=== PATIENT | female | born 1950 | race Caucasian/White ===

== ENCOUNTER 2016-12-06 09:14 | Inpatient (IN) | payer OTHER ==
[~2016-12-06] VITALS: Ht 172.7 cm; Wt 87.0 kg
[2016-12-06] MEDS ORDERED: SODIUM CHLORIDE 0.9% 1,000 ML IVB ONE (09:41)
[2016-12-06 09:45] LABS: Basophils # (auto) 0 uL; Basophils % (auto) 0.4 % (0.0-2.0); CONDITION Y; Eosinophils # (auto) 0.1 uL; Eosinophils % (auto) 0.9 % (0.0-7.0); Hematocrit 37.3 % (36.0-46.0); Hemoglobin 12.6 g/dL (12.2-16.2); Lymphocytes # (auto) 1.4 uL; Lymphocytes % (auto) 20.2 % (10.0-50.0); Mean Corpuscular Hemoglobin 32.3 pg (28.0-32.0); Mean Corpuscular Hgb Conc. 33.9 g/dL (32.0-36.0); Mean Corpuscular Volume 95.3 fL (80.0-100.0); Mean Platelet Volume 8.7 fL (7.4-10.4); Monocytes # (auto) 0.4 uL; Monocytes % (auto) 5.6 % (0.0-12.0); Neutrophils # (auto) 5.2 uL; Neutrophils % (auto) 72.9 % (37.0-80.0); Platelet Count (auto) 275 10^3/uL (140-450); White Blood Cell 7.2 10^3/uL (4.4-10.8)
[2016-12-06] MEDS ORDERED: ASPirin 81 mg TAB PO ONE (09:45)
[2016-12-06 10:10] LABS: Albumin 3.7 g/dL (3.4-5.0); Alkaline Phosphatase 73 U/L (45-117); Anion Gap 6 (5-15); Aspartate Aminotransferase 13 U/L (15-37); BUN/Creatinine Ratio 20.2; Bilirubin, Total 0.3 mg/dL (0.2-1.0); Blood Urea Nitrogen 22 mg/dL (7-18); Calcium 9.3 mg/dL (8.5-10.1); Carbon Dioxide 26 mmol/L (21-32); Chloride 108 mmol/L (98-107); GFR African American 65 mL/min; GFR Non-African American 54 mL/min; Glucose 123 mg/dL (74-106); Potassium 4.4 mmol/L (3.5-5.1); Sodium 140 mmol/L (136-145); Total Protein 7.1 g/dL (6.4-8.2)
[2016-12-06] MEDS ORDERED: LORazepam 0.5 MG TAB PO PRN (10:30)
[2016-12-06] MEDS ORDERED: LACTULOSE 20Gm/30ML SOLN PO PRN (10:30)
[2016-12-06] MEDS ORDERED: DEXTROSE (50%) 50ML SYRG IV PRN (10:30)
[2016-12-06] MEDS ORDERED: NITROGLYCERIN 0.4 MG SL TAB SL PRN (10:30)
[2016-12-06] MEDS ORDERED: MORPHINE SULF INJ 2 MG/ML SYRINGE 1ML IV PRN ×2 (10:30)
[2016-12-06] MEDS ORDERED: PROMETHAZINE HCL 25 MG/ML 1ML IV PRN (10:30)
[2016-12-06] MEDS ORDERED: MORPHINE SULFATE 4 MG/ML SYRG IV PRN (10:30)
[2016-12-06] MEDS ORDERED: ENOXAPARIN SOD 40 MG/0.4 ML SYRINGE SC ONE (10:45)
[2016-12-06] MEDS ORDERED: METOPROLOL TARTRATE 25 MG TAB PO ONE (10:45)
[2016-12-06 10:50] LABS: INR 0.91 (0.9-1.15); Partial Thromboplastin Time 25.2 sec (22.64-33.71); Prothrombin Time 9.9 sec (9.37-12.3)
[2016-12-06] MEDS: SODIUM CHLORIDE 0.9% 1,000 ML IV SCH ×2 (11:04→23:43)
[2016-12-06 11:14] LABS: Temperature: 23.7 C (20.0-25.0)
[2016-12-06] MEDS: ACCU-CHEK COMFORT CURVE STRIP VI SCH ×3 (12:06→23:43)
[2016-12-06] MEDS ORDERED: LORazepam 2MG/ML-1ML VIAL IV PRN (17:30)
[2016-12-06] MEDS ORDERED: CYANOCOBALAMIN (B-12) 1000 MCG/1 ML VIAL IM ONE (19:00)
[2016-12-06] MEDS: TEMAZEPAM 15 MG CAP PO PRN (21:19)
[2016-12-06] MEDS: METOPROLOL TARTRATE 25 MG TAB PO SCH (21:19)
[2016-12-06] MEDS: ATORVASTATIN 20 MG TAB PO SCH (21:19)
[2016-12-06 21:57] VITALS: BP 112/60
[2016-12-06] MEDS ORDERED: PANT40TA2 PO (22:55)
[2016-12-06] MEDS ORDERED: INDO50CA82 PO (22:56)
[2016-12-07 05:27] VITALS: BP 110/64
[2016-12-07] MEDS: ACCU-CHEK COMFORT CURVE STRIP VI SCH ×2 (06:11→12:00)
[2016-12-07 06:16] LABS: Albumin 3.2 g/dL (3.4-5.0); BUN/Creatinine Ratio 20.7; Bilirubin, Total 0.5 mg/dL (0.2-1.0); Calcium 8.9 mg/dL (8.5-10.1); Potassium 4.5 mmol/L (3.5-5.1); Total Protein 6.4 g/dL (6.4-8.2)
[2016-12-07 07:30] VITALS: BP 121/67
[2016-12-07] MEDS: ASPirin 81 mg TAB PO SCH (10:00)
[2016-12-07] MEDS ORDERED: NITROGLYCERIN 0.2MG/HR TOPICAL PATCH TD SCH (10:00)
[2016-12-07] MEDS: ENOXAPARIN SOD 40 MG/0.4 ML SYRINGE SC SCH (10:00)
[2016-12-07] MEDS ORDERED: IBUPROFEN 400 MG TAB PO PRN (10:45)
[2016-12-07] MEDS ORDERED: IBUPROFEN 400 MG TAB PO ONE (10:45)
[2016-12-07] MEDS: METOPROLOL TARTRATE 25 MG TAB PO SCH (10:46)
[2016-12-07] MEDS: CYANOCOBALAMIN 500 MCG TAB PO SCH (10:46)
[2016-12-07] MEDS: SODIUM CHLORIDE 0.9% 1,000 ML IV SCH (16:01)
[2016-12-07 17:00] VITALS: BP 124/68
[2016-12-07 22:00] VITALS: BP 115/76
[2016-12-07] MEDS: TEMAZEPAM 15 MG CAP PO PRN (22:04)
[2016-12-07] MEDS: ATORVASTATIN 20 MG TAB PO SCH (22:04)
[2016-12-08 05:00] VITALS: BP 111/61
[2016-12-08 07:30] VITALS: BP 118/74
[2016-12-08 09:00] VITALS: BP 118/74
[2016-12-08] MEDS: ASPirin 81 mg TAB PO SCH (09:43)
[2016-12-08] MEDS: CYANOCOBALAMIN 500 MCG TAB PO SCH (09:43)
[2016-12-08] MEDS: ENOXAPARIN SOD 40 MG/0.4 ML SYRINGE SC SCH (09:44)
[2016-12-08 13:00] VITALS: BP 112/71
[2016-12-08 17:00] VITALS: BP 119/71
[2016-12-08] MEDS: ATORVASTATIN 20 MG TAB PO SCH (22:19)
[2016-12-08] MEDS: TEMAZEPAM 15 MG CAP PO PRN (22:19)
[2016-12-08 22:20] VITALS: BP 120/79
[2016-12-09 04:53] VITALS: BP 127/73
[2016-12-09 09:00] VITALS: BP 121/71
[2016-12-09] MEDS: ENOXAPARIN SOD 40 MG/0.4 ML SYRINGE SC SCH (10:21)
[2016-12-09] MEDS: ASPirin 81 mg TAB PO SCH (10:22)
[2016-12-09] MEDS: CYANOCOBALAMIN 500 MCG TAB PO SCH (10:22)
[2016-12-09 13:00] VITALS: BP 119/75
[2016-12-09] MEDS ORDERED: CYAN500T2 PO (13:40)
[2016-12-09] MEDS ORDERED: CHOL20007 PO (13:40)
[2016-12-09 14:45] VITALS: BP 119/75
[2016-12-09 15:18] VITALS: BP 119/75
[2016-12-09 17:17] VITALS: BP 119/76
== END 2016-12-09 16:45 | disposition home or self-care (01) | DRG 313 ==
LOC: ER 09:18 → TELE 09:19 → TELE-E-ADS 12:51 → TELE-EAST 17:04
PROVIDERS: ADMIT Internal Medicine; ATTEND Internal Medicine
DX: R07.89 Other chest pain (principal); E53.8 Deficiency of other specified B group vitamins; R00.2 Palpitations; F41.9 Anxiety disorder, unspecified; G47.00 Insomnia, unspecified; R53.1 Weakness; R42 Dizziness and giddiness; E55.9 Vitamin D deficiency, unspecified; R51 Headache; R73.9 Hyperglycemia, unspecified; Z79.82 Long term (current) use of aspirin; Z79.899 Other long term (current) drug therapy; Z80.0 Family history of malignant neoplasm of digestive organs; Z82.3 Family history of stroke; Z82.5 Family history of asthma and other chronic lower respiratory diseases; Z83.3 Family history of diabetes mellitus; Z85.038 Personal history of other malignant neoplasm of large intestine; Z90.49 Acquired absence of other specified parts of digestive tract; Z88.8 Allergy status to other drugs, medicaments and biological substances; Z88.2 Allergy status to sulfonamides; Z90.710 Acquired absence of both cervix and uterus; Z98.1 Arthrodesis status; Z87.891 Personal history of nicotine dependence; Z81.8 Family history of other mental and behavioral disorders; Z84.89 Family history of other specified conditions
CPT/HCPCS: 36415; 70450; 70551; 71010; 80053; 80061; 82306; 82550; 82607; 82746; 82962; 83036; 83735; 84443; 84484; 85025; 85379; 85610; 85652; 85730; 86141; 93005; 93017; 93306; 93886; 94761; 96360; 96372